=== PATIENT | female | born 1990 | race Caucasian/White ===

== ENCOUNTER 2017-06-02 18:16 | Emergency (ER) | payer OTHER ==
--- NOTE | 2017-06-02 19:41 | PD ---
HPI Chief Complaint Leaking of fluid Travel History International Travel<30 Days: No Contact w/Intl Traveler<30Days: No Known Affected Area: No History of Present Illness HPI 27-year-old , IUP at 29.0 care complicated by obesity The patient presents complaining of some leaking of fluid on her thighs this happened a couple of times today after having intercourse. She denies any large gush of fluid. She denies any painful contractions or cramping. She reports good movement. She denies any vaginal bleeding. She has no other complaints or concerns today. Weeks Gestation: 29 Para: 0 : 1 History Past Medical History Narrative Medical Obesity Obstetric History Obstetric History Past Surgical History Surgical History: No Previous Surgery Family History Narrative Family History DM, HTN Social History Alcohol Use: No Tobacco Use: No Substance Abuse: No Review of Systems Except as stated in HPI: all other systems reviewed are Neg Physical Exam Narrative GENERAL: Well-nourished, well-developed patient. SKIN: Warm and dry. HEAD: Normocephalic and atraumatic. EYES: No scleral icterus. No injection or drainage. ENT: No nasal drainage noted. Mucous membranes pink. Airway patent. NECK: Supple, trachea midline. No JVD. CARDIOVASCULAR: Regular rate and rhythm without murmurs, gallops, or rubs. RESPIRATORY: Breath sounds equal bilaterally. No accessory muscle use. BREASTS: Bilateral exam showed no masses , no retractions, no nipple discharge. ABDOMEN/GI: Abdomen soft, non-tender, bowel sounds present, no rebound, no guarding Gravid to [-] weeks size Fundal Height: [-] GENITOURINARY: External Genitalia: intact and normal in appearance. Grossly normal BUS. Physiologic discharge. No evidence of gross R OM. Grossly normal rugate. Amniosure negative. SVE closed/thick/high/posterior FHT's: heart tones in the 130s moderate long-term variability, good accelerations, no decelerations with heart rate tracing is reassuring and appropriate for gestational age EXTREMITIES: No cyanosis or edema. BACK: Nontender without obvious deformity. NEUROLOGICAL: Awake and alert. Motor and sensory grossly within normal limits. Five out of 5 muscle strength in all muscle groups. Normal speech. Musculoskeletal: Grossly normal range of motion, gait, muscle strength Psychiatric: Grossly normal memory and affect MDM Plan Assessment/plan: 1. IUP at 29.0 2. Leaking of fluid: No evidence of PPROM, negative amniosure and no evidence of gross ROM. Small amount of fluid on the patient's leg is likely due to recent intercourse. Strict PPROM precautions 3. No evidence labor: Strict labor precautions 4. Obesity 5. well-being: Reassuring testing with heart rate that is reassuring and appropriate for gestational age. Reactive for gestational age. kick counts daily. 6. Follow up with primary OB in 2-3 days or sooner if needed. Diagnosis Diagnosis: Primary Impression: 29 weeks gestation of Additional Impressions: No leakage of amniotic fluid into vagina False labor before 37 completed weeks of gestation during in third trimester, antepartum Disposition: 01 DISCHARGE HOME Yesenia Kwan MD Jun 02, 2017 19:40
== END 2017-06-02 20:13 | disposition home or self-care (01) ==
LOC: HOBED 18:16
DX: O47.03 False labor before 37 completed weeks of gestation, third trimester (principal); O99.213 Obesity complicating pregnancy, third trimester; E66.9 Obesity, unspecified; Z3A.29 29 weeks gestation of pregnancy
CPT/HCPCS: 84112; 99284

== ENCOUNTER 2017-07-19 09:13 | Emergency (ER) | payer OTHER ==
--- NOTE | 2017-07-19 10:21 | PD ---
HPI Chief Complaint Decreased movement Date Seen: Jul 19, 2017 Time Seen: 10:18 Travel History International Travel<30 Days: No Contact w/Intl Traveler<30Days: No Known Affected Area: No History of Present Illness HPI 27-year-old primigravida at 35+ weeks gestation who reports managed movement today. She has not had anything to eat or drink today. She denies contractions, bleeding or leakage of fluid. History Past Medical History Medical History: Denies Significant Hx Obstetric History Obstetric History Current has been uncomplicated with Dr. Luis Past Surgical History Surgical History: No Previous Surgery Family History Family History: Negative Social History Alcohol Use: No Tobacco Use: No Substance Abuse: No Review of Systems Except as stated in HPI: all other systems reviewed are Neg Physical Exam Narrative GENERAL: Well-nourished, well-developed patient. SKIN: Warm and dry. HEAD: Normocephalic and atraumatic. EYES: No scleral icterus. No injection or drainage. ENT: No nasal drainage noted. Mucous membranes pink. Airway patent. NECK: Supple, trachea midline. No JVD. ABDOMEN/GI: Abdomen soft, non-tender, bowel sounds present, no rebound, no guarding Gravid to [-] weeks size Fundal Height: [35-] GENITOURINARY: External Genitalia: intact and normal in appearance BUS glands: [-] Cervix: [-] Dilatation: [-] Effacement: [-] Station: [-] Presentation: [-] Membranes: [intact] Uterine Contractions: [-] FHT's: Category: [-] Baseline: [-] Reactive: [-yes] Variability: [-] Decels: [-] EXTREMITIES: No cyanosis or edema. BACK: Nontender without obvious deformity. No CVA tenderness. NEUROLOGICAL: Awake and alert. Motor and sensory grossly within normal limits. Five out of 5 muscle strength in all muscle groups. Normal speech. Data Data Vital Signs Reviewed: Yes MDM Medical Record Reviewed: Yes Narrative Course / MDM Assessment: Decreased movement with reactive NST today Plan: Follow-up as scheduled with Dr. Luis. movement counts were reviewed with the patient. Diagnosis Diagnosis: Primary Impression: 35 weeks gestation of Additional Impression: Decreased movement Disposition: 01 DISCHARGE HOME Condition: Good Jensen Marcos MD Jul 19, 2017 10:21
== END 2017-07-19 10:50 | disposition home or self-care (01) ==
LOC: HOBED 09:13
DX: O36.8130 Decreased fetal movements, third trimester, not applicable or unspecified (principal); Z3A.35 35 weeks gestation of pregnancy
CPT/HCPCS: 59025

== ENCOUNTER 2017-08-11 13:07 | Emergency (ER) | payer OTHER ==
--- NOTE | 2017-08-11 13:55 | PD ---
HPI Chief Complaint Back pain Date Seen: August 11, 2017 Time Seen: 13:52 Travel History International Travel<30 Days: No Contact w/Intl Traveler<30Days: No Known Affected Area: No History of Present Illness HPI 27-year-old who is at 39 weeks comes in complaining of right-sided back pain for the past 3 days. Patient states that it is fairly constant but worsens when she stands or exercises and decreases when she is lying down or sitting. Patient has had movement and denies vaginal bleeding discharge or ruptured membranes. Patient denies uterine contractions and states her last exam was approximately a week ago and cervix was closed at that time denies any antepartum complications. Weeks Gestation: 39 Para: 0 : 1 History Past Medical History Medical History: Denies Significant Hx Past Surgical History Surgical History: No Previous Surgery Family History Family History: Negative Social History Alcohol Use: No Tobacco Use: No Substance Abuse: No Review of Systems Except as stated in HPI: all other systems reviewed are Neg Physical Exam Narrative GENERAL: Well-nourished, well-developed patient. SKIN: Warm and dry. HEAD: Normocephalic and atraumatic. EYES: No scleral icterus. No injection or drainage. ENT: No nasal drainage noted. Mucous membranes pink. Airway patent. NECK: Supple, trachea midline. No JVD. CARDIOVASCULAR: Regular rate and rhythm without murmurs, gallops, or rubs. RESPIRATORY: Breath sounds equal bilaterally. No accessory muscle use. ABDOMEN/GI: Abdomen soft, non-tender, bowel sounds present, no rebound, no guarding. No CVA tenderness Gravid to [-39] weeks size Fundal Height: [-] GENITOURINARY: External Genitalia: intact and normal in appearance BUS glands: [-Normal] Cervix: [Posterior-] Dilatation: [Closed-] Effacement: [50-] Station: [-High] Presentation: [-Vertex] Membranes: [intact or ruptured] intact Uterine Contractions: [-] Irregular FHT's: Category: [-] 1 Baseline: [-] 140 Reactive: [-] Moderate Variability: [-] Moderate Decels: [-] Absent EXTREMITIES: No cyanosis or edema. BACK: Nontender without obvious deformity. No CVA tenderness. NEUROLOGICAL: Awake and alert. Motor and sensory grossly within normal limits. Five out of 5 muscle strength in all muscle groups. Normal speech. Data Data Vital Signs Reviewed: Yes Labs Urine dip was negative for all elements MDM Medical Record Reviewed: Yes Plan 27-year-old who is at 39 weeks gestation with most likely discomforts of . Urine dip is negative and patient exhibits no signs or symptoms of pyelonephritis. Patient is not in labor with a reassuring heart rate tracing Follow up with OB provider next week as scheduled Diagnosis Diagnosis: Primary Impression: 39 weeks gestation of Additional Impression: Back pain affecting in third trimester Disposition: 01 DISCHARGE HOME Lilia Keith MD August 11, 2017 13:55
[2017-08-11 14:23] LABS: BACTERIA, URINE RARE /hpf; BILIRUBIN, URINE NEG (NEG); BLOOD, URINE NEG (NEG); GLUCOSE,URINE NEG (NEG); KETONE, URINE NEG (NEG); MUCUS URINE MANY /lpf (OCC); NITRITE,URINE NEG (NEG); PH, URINE 6.5 (5.0-8.5); SQUAMOUS EPITHELIAL CELL URINE 13 /hpf (0-5); URINE COLOR YELLOW (YELLW/STRAW); URINE LEUKOCYTE ESTERASE SMALL (NEG)
== END 2017-08-11 16:16 | disposition home or self-care (01) ==
LOC: HOBED 13:07
DX: O26.893 Other specified pregnancy related conditions, third trimester (principal); M54.9 Dorsalgia, unspecified; Z3A.39 39 weeks gestation of pregnancy
CPT/HCPCS: 76816; 76819; 81001; 99284

== ENCOUNTER 2017-08-15 05:04 | Emergency (ER) | payer OTHER ==
--- NOTE | 2017-08-15 06:33 | PD ---
HPI Chief Complaint Contractions Date Seen: August 15, 2017 Time Seen: 06:25 Travel History International Travel<30 Days: No Contact w/Intl Traveler<30Days: No Known Affected Area: No History of Present Illness HPI Patient is a 27-year-old black female at [address] Carranza who presents complaining of contraction pain, no leakage, no bleeding, baby is active. heart rate tracing is reactive and she is having irregular contractions at this time Weeks Gestation: 39 Para: 0 : 1 Last Menstrual Period: August 15, 2017 History Social History Alcohol Use: No Tobacco Use: No Substance Abuse: No Allergies-Medications (Allergen,Severity, Reaction): Coded Allergies: No Known Allergies (Unverified , 08/11/17) Review of Systems General / Constitutional: No: Fever, Weight Gain, Chills, Other Eyes: No: Diploplia, Blurred Vision, Visual changes, Pain, Photophobia HENT: No: Headaches, Vertigo, Lightheadedness Cardiovascular: No: Irregular Rhythm, Chest Pain or Discomfort, Palpitations, Tachycardia, Syncope, Varicosities, Edema, Cyanosis Respiratory: No: Cough, Short of Breath, Other Gastrointestinal: Abdominal Pain, No: Nausea, Vomiting, Diarrhea Genitourinary: No: Decreased Urinary Output, Oliguria Musculoskeletal: No: Limited ROM, Weakness, Cramping, Edema, Pain Skin: No Rash, No Itching, No Dryness, No Lumps, No Change in Pigmentation, No Change in Nails, No Alopecia, No Lesions Neurologic: No: Weakness, Dizziness, Syncope, Focal Abnormalities, Coordination Problem, Headache, Slurred Speech, Seizures Psychiatric: No: Depression, Suicidal Ideations, Homicidal Ideation Endocrine: No: Heat Intolerance, Cold Intolerance, Polydipsia, Polyuria, Other Physical Exam Narrative GENERAL: Well-nourished, well-developed patient. SKIN: Warm and dry. HEAD: Normocephalic and atraumatic. EYES: No scleral icterus. No injection or drainage. ENT: No nasal drainage noted. Mucous membranes pink. Airway patent. NECK: Supple, trachea midline. No JVD. CARDIOVASCULAR: Regular rate and rhythm without murmurs, gallops, or rubs. RESPIRATORY: Breath sounds equal bilaterally. No accessory muscle use. BREASTS: Bilateral exam showed no masses , no retractions, no nipple discharge. ABDOMEN/GI: Abdomen soft, non-tender, bowel sounds present, no rebound, no guarding Gravid to [-39] weeks size Fundal Height: [-39] GENITOURINARY: External Genitalia: intact and normal in appearance BUS glands: [-] Cervix: [post-] Dilatation: [1-2-] Effacement: [-50] Station: [-3] Presentation: [vtx-] Membranes: [intact ] Uterine Contractions: [irreg-] FHT's: Category: [1-] Baseline: [133-] Reactive: [R-] Variability: [mod-] Decels: [-none] EXTREMITIES: No cyanosis or edema. BACK: Nontender without obvious deformity. No CVA tenderness. NEUROLOGICAL: Awake and alert. Motor and sensory grossly within normal limits. Five out of 5 muscle strength in all muscle groups. Normal speech. MDM Interpretation(s) Patient is 27-year-old white female 39 weeks with contraction pain. Contractions are irregular at this time, heart rate tracing is reactive. Cervix is 1-2/50/-3 which is the same cervix over the last few checks in the office Plan Plan to discharge home to bedrest, return for increasing pain, bleeding, or leakage of fluid. Otherwise follow-up with her OB provider Diagnosis Diagnosis: Primary Impression: [place] Hick's contraction Additional Impression: 39 weeks gestation of Disposition: 01 DISCHARGE HOME Condition: Stable Antoni Beverly II, MD August 15, 2017 06:33
== END 2017-08-15 06:35 | disposition home or self-care (01) ==
LOC: HOBED 05:04
DX: O47.1 False labor at or after 37 completed weeks of gestation (principal); Z3A.39 39 weeks gestation of pregnancy
CPT/HCPCS: 59025

== ENCOUNTER 2017-08-17 13:47 | Inpatient (IN) | payer OTHER ==
[~2017-08-17] VITALS: Ht 154.9 cm; Wt 89.0 kg
[2017-08-17] VITALS (8 sets, daily range): BP systolic 110–114; BP diastolic 70–72; PULSE 88–101; RESP 15; TEMP 97.8–98.4
--- NOTE | 2017-08-17 15:06 | PD ---
HPI Chief Complaint Contractions Date Seen: August 17, 2017 Time Seen: 15:03 Travel History International Travel<30 Days: No Contact w/Intl Traveler<30Days: No Known Affected Area: No History of Present Illness HPI 27-year-old who is at 39 weeks 6 days comes in complaining of contractions since midnight last night accompanied by some watery discharge. Last cervical exam was and it was 2 cm. Her group B strep is negative. Patient states the contractions are getting more frequent and consistent every 5-10 minutes apart with good movement. Denies antepartum complications Weeks Gestation: 39 Para: 0 : 1 History Past Medical History Medical History: Denies Significant Hx Past Surgical History Surgical History: No Previous Surgery Family History Family History: Negative Social History Alcohol Use: No Tobacco Use: No Substance Abuse: No Allergies-Medications (Allergen,Severity, Reaction): Coded Allergies: No Known Allergies (Unverified , 08/11/17) Review of Systems Except as stated in HPI: all other systems reviewed are Neg Physical Exam Narrative GENERAL: Well-nourished, well-developed patient. SKIN: Warm and dry. HEAD: Normocephalic and atraumatic. EYES: No scleral icterus. No injection or drainage. ENT: No nasal drainage noted. Mucous membranes pink. Airway patent. NECK: Supple, trachea midline. No JVD. CARDIOVASCULAR: Regular rate and rhythm without murmurs, gallops, or rubs. RESPIRATORY: Breath sounds equal bilaterally. No accessory muscle use. ABDOMEN/GI: Abdomen soft, non-tender, bowel sounds present, no rebound, no guarding Gravid to [-37] weeks size Fundal Height: [-] GENITOURINARY: External Genitalia: intact and normal in appearance BUS glands: [-] Normal Cervix: [-] Midposition Dilatation: [-] 4 Effacement: [-] 80 Station: [-] -2 Presentation: [-] Vertex Membranes: [intact or ruptured] intact, bulging membranes Uterine Contractions: [-] Every 5 minutes FHT's: Category: [-] 1 Baseline: [-] 140 Reactive: [-] Moderate Variability: [-] Moderate Decels: [-] Absent EXTREMITIES: No cyanosis or edema. BACK: Nontender without obvious deformity. No CVA tenderness. NEUROLOGICAL: Awake and alert. Motor and sensory grossly within normal limits. Five out of 5 muscle strength in all muscle groups. Normal speech. Data Data Vital Signs Reviewed: Yes Group B Strep: Negative MDM Medical Record Reviewed: Yes Plan 27-year-old who is at 39 weeks 6 days with negative group B strep here with early labor Patient will be admitted to labor and delivery Dr. Patterson was notified Diagnosis Diagnosis: Primary Impression: 39 weeks gestation of Additional Impression: Irregular uterine contractions Disposition: 01 DISCHARGE HOME Lilia Keith MD August 17, 2017 15:06
[2017-08-17] MEDS ORDERED: LACTATED RINGER'S 1000 ML INJ 1,000 ML IV PRN (15:07)
[2017-08-17] MEDS ORDERED: ONDANSETRON HCL 4 MG/2 ML VIAL IV PUSH PRN (15:15)
[2017-08-17] MEDS ORDERED: OXYTOCIN 30 UNITS-500ML PREMIX 500 ML IV ONE (15:15)
[2017-08-17] MEDS ORDERED: LIDOCAINE HCL 1% 50 ML VIAL I-DERMAL PRN (15:15)
[2017-08-17] MEDS ORDERED: CITRIC ACID-SODIUM CITRATE LIQ 30 ML UDC PO SCH (15:15)
[2017-08-17] MEDS ORDERED: MINERAL OIL 10 ML VIAL TOPICAL PRN (15:15)
[2017-08-17] MEDS ORDERED: SODIUM CHLORID 0.9% 500 ML INJ 500 ML IV PRN (15:15)
[2017-08-17] MEDS ORDERED: LIDOCAINE HCL 1% 50 ML VIAL INFIL PRN (15:15)
[2017-08-17] MEDS ORDERED: SODIUM CHLOR 0.9% 1000 ML INJ 1,000 ML IV PRN (15:27)
[2017-08-17] MEDS: LACTATED RINGER'S 1000 ML INJ 1,000 ML IV SCH ×2 (16:00→23:19)
[2017-08-17 16:50] LABS: AUTOMATED NEUTROPHIL # 9.6 TH/MM3 (1.8-7.7); BASOPHIL % 0.2 % (0.0-2.0); EOSINOPHIL % 0.2 % (0.0-4.0); HEMATOCRIT 31.6 % (35.0-46.0); HEMOGLOBIN 10.5 GM/DL (11.6-15.3); LYMPH % 17.5 % (9.0-44.0); LYMPHOCYTE # 2.2 TH/MM3 (1.0-4.8); MEAN CELL VOLUME 89.7 FL (80.0-100.0); MEAN CORPUSCULAR HEMOGLOBIN 29.7 PG (27.0-34.0); MEAN CORPUSCULAR HGB CONC 33.1 % (32.0-36.0); MEAN PLATELET VOLUME 9.1 FL (7.0-11.0); MONO % 6.1 % (0.0-8.0); MONOCYTE # 0.8 TH/MM3 (0-0.9); PLATELET COUNT 225 TH/MM3 (150-450); RED BLOOD COUNT 3.52 MIL/MM3 (4.00-5.30); RED CELL DISTRIBUTION WIDTH 14.2 % (11.6-17.2); WHITE BLOOD COUNT 12.6 TH/MM3 (4.0-11.0)
--- NOTE | 2017-08-17 18:26 | HHI.PR ---
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
[2017-08-17] MEDS ORDERED: PREN29TA PO (18:50)
[2017-08-17] MEDS ORDERED: OXYTOCIN 30 UNITS-500ML PREMIX 500 ML IV PRN (21:30)
[2017-08-18] VITALS (153 sets, daily range): BP systolic 87–132; BP diastolic 40–94; PULSE 64–111; RESP 15–20; TEMP 97.6–98.7; O2SAT 96–100
[2017-08-18] MEDS ORDERED: fentaNYL 2MCG-BUPIV 0.125% INJ 100 ML ONE (00:29)
[2017-08-18] MEDS ORDERED: LIDOCAINE HCL 1% PF 30 ML VIAL ONE ×2 (00:31→06:13)
[2017-08-18] MEDS ORDERED: LIDOCAINE 2%/EPINEPHrine PF 1:200,000 20ML SDV ONE (00:34)
[2017-08-18] MEDS ORDERED: NO SYSTEM NARCOTICS PRN (01:15)
[2017-08-18] MEDS ORDERED: DO NOT ADMINISTER ANTICOAGULANTS PRN (01:15)
[2017-08-18] MEDS ORDERED: ePHEDrine/NS 25 MG/5 ML SYRINGE IV PUSH PRN (01:15)
[2017-08-18] MEDS: fentaNYL 2MCG-BUPIV 0.125% 100 ML EPIDURAL PRN ×2 (01:40→08:27)
--- NOTE | 2017-08-18 04:01 | PD.LABORPN ---
Subjective Subjective feeling comfortable, denies LOF or VB, feeling contractions but unsure how far apart Objective Vital Signs Vital Signs Date Time Temp Pulse Resp B/P (MAP) Pulse Ox O2 Delivery O2 Flow Rate FiO2 08/18/17 03:25 78 08/18/17 03:20 83 08/18/17 03:15 80 94/51 (65) 08/18/17 03:15 111 08/18/17 03:10 91 08/18/17 03:05 77 99 08/18/17 03:00 92 08/18/17 03:00 95 99/51 (67) 97 08/18/17 02:55 81 98 08/18/17 02:50 80 98 08/18/17 02:45 88 08/18/17 02:45 81 99 08/18/17 02:45 92/48 (63) 08/18/17 02:40 88 08/18/17 02:40 97 08/18/17 02:35 103 08/18/17 02:35 98 08/18/17 02:30 102 94/50 (65) 08/18/17 02:30 97 08/18/17 02:30 99 08/18/17 02:25 83 99 08/18/17 02:20 101 97 08/18/17 02:15 76 99/54 (69) 99 08/18/17 02:15 90 08/18/17 02:10 94 99 08/18/17 02:05 84 97 08/18/17 02:01 76 08/18/17 02:00 90 96 08/18/17 01:55 84 98 08/18/17 01:50 82 97 08/18/17 01:46 75 97/47 (64) 08/18/17 01:45 73 99 08/18/17 01:40 78 99 08/18/17 01:40 9 08/18/17 01:35 76 99 08/18/17 01:30 96 08/18/17 01:30 98 99/53 (68) 97 08/18/17 01:25 91 97 08/18/17 01:21 73 99/55 (70) 08/18/17 01:20 74 98 08/18/17 01:16 82 104/58 (73) 08/18/17 01:15 83 99 08/18/17 01:10 86 08/18/17 01:10 112/67 (82) 99 08/18/17 01:05 108/65 (79) 97 08/18/17 01:05 86 08/18/17 01:00 94 102/58 (73) 97 08/18/17 00:56 96 115/70 (85) 08/18/17 00:55 98 98 08/18/17 00:50 95 120/73 (89) 99 08/18/17 00:46 88 115/76 (89) 08/18/17 00:45 89 98 08/18/17 00:41 94 124/75 (91) 08/18/17 00:40 96 99 08/18/17 00:39 99 129/76 (93) 08/17/17 23:00 98.4 15 08/17/17 22:41 95 110/72 (85) Objective Pelvic Exam: Cervix: [mid] Dilatation: [6] Effacement: [50] Station: [-2] Presentation: [vtx] Membranes: [AROM'd clear this check] Uterine Contractions: [difficult to cook pickled meat on monitor] FHT's: Category: [I] Baseline: [130s] Reactive: [y] Variability: [y] Decels: [occasional variables] Weeks Gestation: 39 Pt started active labor?: Yes Medical induction of labor?: No Artificial rupture of membrane: Yes Artificial ROM date: August 18, 2017 Artifical ROM time: 03:46 Assessment/Plan Problem List: (1) Labor and delivery indication for care or intervention ICD Codes: O75.9 - Complication of labor and delivery, unspecified Assessment and Plan slow progress in labor comfortable now w epidural in place AROM'd this check, clear continue active mgmt Hillary Patterson MD August 18, 2017 04:01
[2017-08-18] MEDS ORDERED: OXYTOCIN 10 UNIT/ML AMP ONE (06:12)
--- NOTE | 2017-08-18 07:19 | HHI.PR ---
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 O: VS: Exam: 5-6 cm/50%/-2 FHTs: 150s, moderate variability, accelerations present, variable decelerations with each contraction down to the 100s, does have an occasional late deceleration to the 120s-130s TOCO: Contractions spaced out every 7 minutes A/P 19-year-old G1 at 40 weeks and 0 days here today for spontaneous labor 1. IUP: Category 2 tracing but overall reassuring -Cephalic by exam, EFW 7/2-8 pounds, GBS negative. - EWF on 08/11 = 3309g (43%), unsure why growth was done by OB diagnostics -Female fetus 2. Labor: Status post AROM at 3:45 AM, clear fluid, IUPC in and working, begin amnioinfusion now, start Pitocin following maternal resuscitation, discussed with patient indications for if cannot proceed with augmentation secondary to intolerance. -Comfortable status post epidural. Mark Almaguer MD August 18, 2017 07:19
[2017-08-18] MEDS ORDERED: OXYTOCIN 30 UNITS-500ML PREMIX 500 ML IV PRN ×2 (07:30→17:30)
--- NOTE | 2017-08-18 08:29 | PD.LABORPN ---
Subjective Subjective comfortable with epidural Objective Vital Signs Vital Signs Date Time Temp Pulse Resp B/P (MAP) Pulse Ox O2 Delivery O2 Flow Rate FiO2 08/18/17 08:27 17 08/18/17 07:35 92 08/18/17 07:31 95 105/59 (74) 08/18/17 07:30 88 08/18/17 07:25 83 08/18/17 07:20 84 08/18/17 07:16 83 101/56 (71) 08/18/17 07:15 86 08/18/17 07:14 18 08/18/17 07:10 92 08/18/17 07:05 91 08/18/17 07:00 105/57 (73) 08/18/17 07:00 89 08/18/17 06:55 86 97 08/18/17 06:50 90 08/18/17 06:50 97 08/18/17 06:46 87 98/51 (67) 08/18/17 06:45 98 08/18/17 06:45 96 08/18/17 06:40 93 08/18/17 06:40 97 08/18/17 06:30 87 96/53 (67) 97 08/18/17 06:25 88 98 08/18/17 06:20 89 97 08/18/17 06:16 81 95/58 (70) 08/18/17 06:15 89 98 08/18/17 06:10 92 98 08/18/17 06:05 97 98 08/18/17 06:00 101 99/62 (74) 98 08/18/17 05:55 91 98 08/18/17 05:50 87 99 08/18/17 05:46 98/50 (66) 08/18/17 05:45 91 08/18/17 05:45 98 08/18/17 05:40 86 08/18/17 05:40 98 08/18/17 05:35 99 08/18/17 05:35 92 08/18/17 05:31 109 99/54 (69) 08/18/17 05:30 98.7 15 08/18/17 05:30 93 98 08/18/17 05:25 93 98 08/18/17 05:20 85 99 08/18/17 05:15 89 08/18/17 05:15 90 96/60 (72) 98 18 05:10 98 99 5//18 05:05 95 99 18 05:01 81 5/18 05:00 93 99 18 04:55 84 100 518 04:50 84 99 /18 04:46 101 104/58 (73) 5/18 04:45 104 100 /18 04:40 88 98 18 04:35 85 99 18 04:31 85 100/63 (75) 18 04:30 83 99 18 04:25 99 18 04:25 91 08/18/17 04:20 96 08/18/17 04:20 99 08/18/17 04:15 100 18 04:15 94 08/18/17 04:15 103 117/67 (84) 08/18/17 04:10 86 08/18/17 04:10 100 08/18/17 04:05 100 08/18/17 04:05 99 18 04:01 96 108/56 (73) 08/18/17 04:00 107 99 18 03:55 102 98 18 03:50 94 100 18 03:46 109 95/46 (62) 08/18/17 03:45 109 98 18 03:40 80 98 //18 03:35 84 97 /18 03:30 85 18 03:30 98.4 78 15 95/52 (66) 98 18 03:25 98 08/18/18 03:25 78 //18 03:20 83 5//18 03:20 97 5/8/18 03:15 80 94/51 (65) 18 03:15 111 18 03:15 99 18 03:10 98 //18 03:10 91 18 03:05 77 99 //18 03:00 92 /18 03:00 95 99/51 (67) 97 518 02:55 81 98 18 02:50 80 98 5/8/18 02:45 88 08/18/17 02:45 81 99 08/18/17 02:45 92/48 (63) 08/18/17 02:40 88 08/18/17 02:40 97 08/18/17 02:35 103 08/18/17 02:35 98 08/18/17 02:30 102 94/50 (65) 08/18/17 02:30 97 08/18/17 02:30 99 08/18/17 02:25 83 99 08/18/17 02:20 101 97 08/18/17 02:15 76 99/54 (69) 99 08/18/17 02:15 90 08/18/17 02:10 94 99 08/18/17 02:05 84 97 08/18/17 02:01 76 08/18/17 02:00 90 96 08/18/17 01:55 84 98 08/18/17 01:50 82 97 08/18/17 01:46 75 97/47 (64) 08/18/17 01:45 73 99 08/18/17 01:40 78 99 08/18/17 01:40 9 08/18/17 01:35 76 99 08/18/17 01:30 96 08/18/17 01:30 98 99/53 (68) 97 08/18/17 01:25 91 97 08/18/17 01:21 73 99/55 (70) 08/18/17 01:20 74 98 08/18/17 01:16 82 104/58 (73) 08/18/17 01:15 83 99 08/18/17 01:10 86 08/18/17 01:10 112/67 (82) 99 08/18/17 01:05 108/65 (79) 97 08/18/17 01:05 86 08/18/17 01:00 94 102/58 (73) 97 08/18/17 00:56 96 115/70 (85) 08/18/17 00:55 98 98 08/18/17 00:50 95 120/73 (89) 99 08/18/17 00:46 88 115/76 (89) 08/18/17 00:45 89 98 08/18/17 00:41 94 124/75 (91) 08/18/17 00:40 96 99 08/18/17 00:39 99 129/76 (93) Objective 7-80/0 coming down to apply copious amnio infusion strip with decreased BTBV and some variable/late components EFW 7 pelvis clinically adequate Weeks Gestation: 39 Pt started active labor?: Yes Medical induction of labor?: No Artificial rupture of membrane: Yes Artificial ROM date: August 18, 2017 Artifical ROM time: 03:46 Assessment/Plan Problem List: (1) Labor and delivery indication for care or intervention ICD Codes: O75.9 - Complication of labor and delivery, unspecified Assessment and Plan good change in an hour have sit upright hoping can get to complete and push continue amnioinfusion Fabiola Aguirre MD August 18, 2017 08:29
[2017-08-18] MEDS ORDERED: LACTATED RINGER'S 1000 ML INJ 1,000 ML IV ONE ×2 (10:21→12:00)
[2017-08-18] MEDS ORDERED: ceFAZolin 2 GM in NS 100 ML IV SCH (10:45)
[2017-08-18] MEDS ORDERED: ACETAMINOPHEN 1000 MG/100 ML 100 ML IV ONE (10:56)
[2017-08-18] MEDS ORDERED: MORPHINE SULFATE PF 5 MG/10 ML VIAL ONE (10:56)
[2017-08-18] MEDS ORDERED: LACTATED RINGER'S 1000 ML INJ 1,000 ML IV SCH (11:00)
[2017-08-18] MEDS ORDERED: AZITHROMYCIN INJ 500 MG in SODIUM CHLOR 0.9% 250 ML INJ 250 ML IV ONE (11:00)
[2017-08-18] MEDS ORDERED: ceFAZolin 2 GM PREMIX 50 ML IV SCH (11:30)
[2017-08-18] MEDS ORDERED: ONDANSETRON HCL 4 MG/2 ML VIAL IV PUSH ONE (12:00)
[2017-08-18] MEDS ORDERED: OXYTOCIN 10 UNIT/ML AMP IV ONE (12:00)
[2017-08-18] MEDS ORDERED: CITRIC ACID-SODIUM CITRATE LIQ 30 ML UDC PO SCH (12:00)
[2017-08-18] MEDS ORDERED: LIDOCAINE 2%/EPINEPHrine PF 1:200,000 20ML SDV OTHER ONE (12:00)
[2017-08-18] MEDS ORDERED: PHENYLEPH/NS 1000 MCG/10 ML SYR IV ONE (12:00)
[2017-08-18] MEDS ORDERED: DEXAMETHASONE SOD PHOS 4 MG/ML VIAL IV ONE (12:00)
[2017-08-18] MEDS ORDERED: KETOROLAC TROMETHAMINE 30 MG/ML (IVP) VIAL IV PUSH ONE (12:30)
[2017-08-18] MEDS ORDERED: SODIUM CHLORIDE 0.9% FLUSH 10 ML FLUSH IV FLUSH PRN (12:30)
[2017-08-18] MEDS ORDERED: ONDANSETRON HCL 4 MG/2 ML VIAL IV PUSH PRN (12:30)
[2017-08-18] MEDS ORDERED: OXYTOCIN 30 UNITS-500ML PREMIX 500 ML IV ONE (12:30)
[2017-08-18] MEDS ORDERED: oxyCODONE/ACETAMINOPHEN 5 MG/325 MG TAB PO PRN (12:30)
[2017-08-18] MEDS ORDERED: MORPHINE SULFATE 4 MG/ML INJ IV PUSH PRN (12:30)
[2017-08-18] MEDS ORDERED: ZOLPIDEM TARTRATE 5 MG TAB PO PRN (12:30)
[2017-08-18] MEDS ORDERED: SIMETHICONE 80 MG CHEWABLE TAB PO PRN (12:30)
--- NOTE | 2017-08-18 12:31 | HHI.DCPOC ---
Discharge Care Plan Diagnosis: (1) Status post primary low transverse section (2) Arrested labor (3) heart rate non-reassuring affecting management of mother (4) 40 weeks gestation of Your Health Problems Are: delivery Report Symptoms to Your Doctor -Temperature above 100.5 degrees -Redness, of incision or excessive or foul smelling drainage -Unusual pain or calf pain -Increased vaginal bleeding -Painful or difficulty urinating -Feelings of extreme sadness or anxiety after 2 weeks Goals to Promote Your Health * To prevent worsening of your condition and complications * To maintain your health at the optimal level Directions to Meet Your Goals Take your medications as prescribed Follow your dietary instruction Follow activity as directed Ensure plenty of rest for recovery Drink fluids for hydration Keep your appointments as scheduled Take your immunizations and boosters as scheduled If your symptoms worsen call your PCP, if no PCP go to Urgent Care Center or Emergency Room Smoking is Dangerous to Your Health. Avoid second hand smoke Call the 24-hour crisis hotline for domestic abuse at Mark Almaguer MD August 18, 2017 12:31
--- NOTE | 2017-08-18 12:34 | PD.OB.DELI ---
Procedure Note Section Procedure Pre Op Diagnosis: (1) 40 weeks gestation of (2) Arrested labor (3) heart rate non-reassuring affecting management of mother Post Op Diagnosis: (1) heart rate non-reassuring affecting management of mother (2) Arrested labor (3) 40 weeks gestation of (4) Status post primary low transverse section Performed by Mark Almaguer Procedure: Primary Low Transverse Sec Indication for delivery: Nonreassuring heart tracing, Other (Arrest of dilation 7 cm) Previous condition: None Informed consent obtained: For anesthesia, For procedure Confirmed correct: Patient, Procedure, Site, Time-out taken Anesthesia: Epidural Medication prior to procedure: As documented in eMAR, Analgesics, Antibiotics, IV (2 g Ancef preoperatively and 500 mg IV azithromycin) Monitoring during procedure: Blood pressure monitoring, Pulse oximetry Urinary catheter: Inserted using sterile technique Sterile preparation: Duraprep Position: Supine with wedge to left side Operative Features Skin Incision: Pfannenstiel Uterine Incision: Low transverse w/knife / blunt ext Membranes Ruptured: Artificially, Appearance of fluid (Clear) Presentation: Occiput anterior, Vertex Delivery date: August 18, 2017 Delivery time: 11:42 Delivery of infant: Uneventful, Umbilical cord (Three-vessel cord) Infant: Female, Single One Minute : 9 Five Minute : 9 Status of infant: Viable, Nursery present Placenta delivered: Intact, Other (Donated) Medications: Antibiotics, Oxytocin Estimated blood loss: 800 cc Procedure tolerated: Well Maternal Complications: Other (None) Maternal Condition: Stable Baby Complications: Other (None) Condition: Stable Procedure in detail See full dictated note, dictation number: [id number] Mark Almaguer MD August 18, 2017 12:34
--- NOTE | 2017-08-18 13:05 | MP ---
cc: Mark Almaguer MD DATE OF OPERATION: 08/18/2017 PREOPERATIVE DIAGNOSES: 1. Intrauterine at 40 weeks and 0 days. 2. Persistent category 2 tracing, intolerance of labor. 3. Arrest of dilation, 7 cm. POSTOPERATIVE DIAGNOSES: 1. Intrauterine at 40 weeks and 0 days. 2. Persistent category 2 tracing, intolerance of labor. 3. Arrest of dilation 7 cm. 4. Status post delivery of infant. PROCEDURE PERFORMED: Primary low transverse section. SURGEON: Mark Almaguer MD DISH CLOTH INSPECTOR: [facility] labor and delivery OR staff. FINDINGS: 1. Viable female infant at 11:42, Apgars 9 and 9. 2. Normal uterus, fallopian tubes, and ovaries bilaterally. No intraabdominal adhesions. 3. Intact placenta, 3 vessel cord. ANTIBIOTICS: 2 grams IV Ancef and 500 mg IV azithromycin preoperatively. SPECIMENS: Placenta donated per patient request DEEP VEIN THROMBOSIS PROPHYLAXIS: Sequential compression devices throughout the case. ANESTHESIA: Epidural. ESTIMATED BLOOD LOSS: 800 mL URINE OUTPUT: 200 mL, clear via Lee. INTRAVENOUS FLUIDS: 1600 mL lactated Ringer's and Pitocin. COMPLICATIONS: None. COUNTS: Correct x 2. TIMEOUT: Done correct. DISPOSITION: Stable to PACU, then to . INDICATION: This patient is a 27-year-old G1, now P1-0-0-1, who presented in labor. She was artificially ruptured at 3:45 this morning. Her strip had been mostly category 2 throughout her stay with occasional lates but mostly variables with most of her contractions. Multiple efforts of maternal resuscitation were performed, repositioning, IV fluid bolus, oxygen and amnioinfusion without much improvement. She made slow change from her arrival; however, at 6-7 cm, she arrested for up to 4 hours despite inadequate MVU's. We could not safely augment with Pitocin given her category 2 tracing and the patient was counseled for a delivery. Please see notes and consents for further details. DESCRIPTION OF PROCEDURE: The patient was taken to the operating room and positioned in supine position with a left lateral tilt with the arms out. The abdomen was prepped and draped in a sterile fashion. Anesthesia was found to be adequate. A Pfannenstiel incision was made and dissected sharply down to the fascia, which was extended bilaterally with Ornelas scissors. The fascia was dissected off the underlying rectus muscle superiorly and inferiorly with Ornelas scissors. The peritoneal cavity was entered bluntly and retracted laterally. Bladder blade was inserted and a bladder flap was developed with Metzenbaum scissors. A low transverse incision was made inthe lower uterine segment and extended in a cephalad caudad fashion. I inserted my hand into the uterine cavity and the head was elevated to the hysterotomy and with fundal pressure the head was delivered with ease, followed by gentle downward and upward guidance for the anterior and posterior shoulders respectively. The torso and lower extremities followed with ease and the had spontaneous cry. Delayed cord clamping was performed and infant was then handed off to staff. The placenta was delivered intact with cord traction and uterine massage. Pitocin was bolused. The uterus was exteriorized and cleared free of clot and debris. It was closed with 2 layers, first with running locking 0-Vicryl from left to right and then an imbricating layer of 0 Vicryl. There was oozing from the left edge of the hysterotomy, which was close to the ascending uterine artery. A single O'Burnside stitch on the left with 0 Vicryl was performed and hemostasis was appreciated. The uterus was returned to the abdomen, which was irrigated. The lower uterine segment was found to be hemostatic. The fascia was closed from left to right with unlocked running 0-Vicryl. Then the subcutaneous space was closed with running 2-0 Monocryl. A subcuticular suture of 3-0 Monocryl was used to close the skin and the pressure dressing was applied. The patient tolerated the procedure well. MD YANN Waddell/JENNIFER , 12:41 PM , 01:03 PM PREMA
[2017-08-18] MEDS ORDERED: EPIDURAL-DO NOT ADMINISTER ANTICOAGULANTS PRN (13:45)
[2017-08-18] MEDS ORDERED: EPIDURAL-DIPHENHYDRAMINE HCL 50 MG CAP PO PRN (13:45)
[2017-08-18] MEDS ORDERED: EPIDURAL-DIPHENHYDRAMINE HCL 50 MG/ML VIAL IV PUSH PRN (13:45)
[2017-08-18] MEDS ORDERED: EPIDURAL-NALOXONE HCL 0.4 MG/ML AMP IV PUSH PRN (13:45)
[2017-08-18] MEDS ORDERED: EPIDURAL-NO SYSTEMIC NARCOTICS PRN (13:45)
[2017-08-18] MEDS: KETOROLAC TROMETHAMINE 30 MG/ML (IVP) VIAL IV PUSH SCH ×2 (18:14→23:58)
[2017-08-18] MEDS: LACTATED RINGER'S 1000 ML INJ 1,000 ML IV SCH (19:46)
[2017-08-18] MEDS ORDERED: SODIUM CHLORIDE 0.9% FLUSH 10 ML FLUSH IV FLUSH SCH (21:00)
[2017-08-19 01:00] VITALS: BP 93/48; PULSE 80; RESP 18; TEMP 98.3; O2SAT 98
[2017-08-19] MEDS: LACTATED RINGER'S 1000 ML INJ 1,000 ML IV SCH (01:30)
[2017-08-19 04:00] VITALS: BP 88/62; PULSE 80; RESP 18; TEMP 98.4; O2SAT 98
[2017-08-19] MEDS: KETOROLAC TROMETHAMINE 30 MG/ML (IVP) VIAL IV PUSH SCH ×2 (05:55→12:07)
[2017-08-19 05:58] LABS: AUTOMATED NEUTROPHIL # 13.6 TH/MM3 (1.8-7.7); BASOPHIL % 0.1 % (0.0-2.0); EOSINOPHIL % 0.2 % (0.0-4.0); HEMATOCRIT 24.1 % (35.0-46.0); HEMOGLOBIN 8.1 GM/DL (11.6-15.3); LYMPH % 12.3 % (9.0-44.0); LYMPHOCYTE # 2.1 TH/MM3 (1.0-4.8); MEAN CELL VOLUME 90.2 FL (80.0-100.0); MEAN CORPUSCULAR HEMOGLOBIN 30.4 PG (27.0-34.0); MEAN CORPUSCULAR HGB CONC 33.7 % (32.0-36.0); MEAN PLATELET VOLUME 8.9 FL (7.0-11.0); MONO % 6.8 % (0.0-8.0); MONOCYTE # 1.2 TH/MM3 (0-0.9); NEUT % 80.6 % (16.0-70.0); PLATELET COUNT 177 TH/MM3 (150-450); RED BLOOD COUNT 2.67 MIL/MM3 (4.00-5.30); RED CELL DISTRIBUTION WIDTH 14.4 % (11.6-17.2); WHITE BLOOD COUNT 16.9 TH/MM3 (4.0-11.0)
[2017-08-19 07:45] VITALS: BP 100/59; PULSE 75; RESP 18; TEMP 97.9
--- NOTE | 2017-08-19 07:57 | HHI.OB ---
Subjective Post Operative Day: 1 Remarks doing well, trying to Objective Vitals/I&O Vital Signs Date Time Temp Pulse Resp B/P (MAP) Pulse Ox O2 Delivery O2 Flow Rate FiO2 08/19/17 04:00 98.4 08/19/17 04:00 80 18 88/62 (71) 98 08/19/17 01:00 93/48 (63) 08/19/17 01:00 80 18 08/19/17 01:00 98.3 98 08/18/17 20:00 98.0 08/18/17 20:00 64 18 92/53 (66) 97 08/18/17 18:15 93 18 101/62 (75) 08/18/17 13:46 98.2 76 18 95/52 (66) 08/18/17 13:25 97.6 08/18/17 13:20 19 99 08/18/17 13:20 78 94/54 (67) 08/18/17 13:15 79 08/18/17 13:15 84 08/18/17 13:15 92/51 (65) 08/18/17 13:10 18 99 08/18/17 13:00 85 20 98/57 (71) 99 08/18/17 12:45 82 19 94/55 (68) 98 08/18/17 12:30 97.8 97 20 98/54 (69) 99 08/18/17 11:01 98 102/58 (73) 08/18/17 11:00 85 08/18/17 11:00 97 08/18/17 10:55 80 08/18/17 10:50 83 08/18/17 10:46 80 101/59 (73) 08/18/17 10:45 88 08/18/17 10:16 71 98/40 (59) 08/18/17 10:15 79 08/18/17 10:01 85 104/64 (77) 08/18/17 10:00 87 08/18/17 09:50 91 08/18/17 09:45 80 101/63 (76) 08/18/17 09:45 18 08/18/17 09:45 83 08/18/17 09:40 86 08/18/17 09:35 88 08/18/17 09:31 85 102/61 (75) 08/18/17 09:30 84 08/18/17 09:25 93 08/18/17 09:20 87 08/18/17 09:15 88 08/18/17 09:15 18 08/18/17 09:15 89 113/67 (82) 08/18/17 09:10 89 08/18/17 09:05 79 08/18/17 09:01 94 107/64 (78) 08/18/17 09:00 86 08/18/17 09:00 17 08/18/17 08:55 89 08/18/17 08:50 97 08/18/17 08:46 108 08/18/17 08:46 132/94 (107) 08/18/17 08:45 98.2 08/18/17 08:45 89 08/18/17 08:40 82 08/18/17 08:35 87 08/18/17 08:30 84 104/62 (76) 08/18/17 08:30 88 08/18/17 08:27 17 08/18/17 08:20 84 08/18/17 08:16 98 97/59 (72) 08/18/17 08:15 95 08/18/17 08:10 85 08/18/17 08:05 86 08/18/17 08:00 100 08/18/17 08:00 89 87/56 (66) 08/18/17 08:00 18 Result Diagram: 08/19/17 0511 Objective Remarks GENERAL: Well-nourished, well-developed patient. CARDIOVASCULAR: Regular rate and rhythm without murmurs, gallops, or rubs. RESPIRATORY: Breath sounds equal bilaterally. No accessory muscle use. ABDOMEN/GI: Abdomen soft, non-tender, bowel sounds present. Incision: dressing Clean, dry and intact. Fundus: Firm, non-tender at umbilicus. GENITOURINARY: Light to moderate bleeding. EXTREMITIES: No cyanosis or edema, non-tender, without signs of DVT. Medications and IVs Current Medications Medications (Trade) Dose Ordered Sig/Vanessa Route Start Time Stop Time Status Last Admin Cefazolin Sodium 2000 mg/Sodium Chloride 100 ml @ 200 mls/hr TECHNOLOGY AND ENGINEERING TEACHER IV 08/18/17 10:45 08/21/17 10:44 08/18/17 11:01 Lactated Ringer's 1,000 ml @ 100 mls/hr Q10H IV 08/18/17 17:26 08/19/17 13:25 08/19/17 01:30 Oxytocin 500 ml @ 100 mls/hr UNSCH X1 PRN IV 08/18/17 17:30 08/19/17 17:29 (NS Flush) 2 ml BID IV FLUSH 08/18/17 21:00 (NS Flush) 2 ml UNSCH PRN IV FLUSH 08/18/17 12:30 (Mylicon Chew) 80 mg QID PRN PO 08/18/17 12:30 (Motrin) 600 mg Q6H PRN PO 08/18/17 12:30 (Percocet 5-325 Mg) 1 tab Q4H PRN PO 08/18/17 12:30 (Percocet 5-325 Mg) 2 tab Q4H PRN PO 08/18/17 12:30 (Karis-Colace) 2 tab Q12H PRN PO 08/18/17 12:30 (Ambien) 5 mg HS PRN PO 08/18/17 12:30 (M-M-R Ii Inj) 0.5 ml ONCE ONCE SQ 08/19/17 16:00 08/19/17 16:01 (Boostrix Inj) 0.5 ml ONCE ONCE IM 08/19/17 16:00 08/19/17 16:01 (Zofran Inj) 4 mg Q6H PRN IV PUSH 08/18/17 12:30 (Morphine Inj) 5 mg Q4H PRN IV PUSH 08/18/17 12:30 (Toradol Inj) 15 mg Q6H IV PUSH 08/18/17 12:30 08/19/17 12:29 08/19/17 05:55 ([facility]) NO SYSTEMIC NARCOTICS TO BE GIVEN FO... UNSCH PRN .XX 08/18/17 13:45 08/19/17 13:45 (Narcan Inj) 0.4 mg UNSCH PRN IV PUSH 08/18/17 13:45 08/19/17 13:45 (Benadryl Inj) 25 mg Q6H PRN IV PUSH 08/18/17 13:45 08/19/17 13:45 (Benadryl) 50 mg Q6H PRN PO 08/18/17 13:45 08/19/17 13:45 ([facility]) ALL NURSING DEPARTMENTS UNSCH PRN .XX 08/18/17 13:45 08/19/17 13:45 Assessment/Plan Problem List: (1) Labor and delivery indication for care or intervention ICD Codes: O75.9 - Complication of labor and delivery, unspecified (2) delivery delivered ICD Codes: O82 - Encounter for delivery without indication (3) 40 weeks gestation of ICD Codes: Z3A.40 - 40 weeks gestation of Assessment and Plan POD #1 C/S female doing well routine post op care Discharge Planning 2-3 d PP Attending Attestation pt seen by Sabina Raymundo MD August 19, 2017 07:57
[2017-08-19] MEDS ORDERED: MEASLES, MUMPS, RUBELLA VACCINE 0.5 ML VIAL SQ ONE (16:00)
[2017-08-19] MEDS ORDERED: DIPHTH/TETANUS/ACEL PERTUSSIS (BOOSTER) 0.5 ML VIAL/PFS IM ONE (16:00)
[2017-08-19] MEDS: DOCUSATE SODIUM 50 MG/SENNA 8.6 MG TAB PO PRN (19:54)
[2017-08-19] MEDS: IBUPROFEN 600 MG TAB PO PRN (19:55)
[2017-08-19 20:00] VITALS: BP 97/64; PULSE 90; RESP 18; TEMP 97.8
[2017-08-19] MEDS: oxyCODONE/ACETAMINOPHEN 5 MG/325 MG TAB PO PRN (22:18)
[2017-08-20] MEDS: IBUPROFEN 600 MG TAB PO PRN ×2 (05:39→13:56)
[2017-08-20] MEDS: oxyCODONE/ACETAMINOPHEN 5 MG/325 MG TAB PO PRN ×2 (05:39→13:56)
--- NOTE | 2017-08-20 07:57 | HHI.OB ---
Subjective Post Operative Day: [address] Almaguer. Doing well, min bleeding, pain well controlled, susan po. ready to go home Objective Vitals/I&O Vital Signs Date Time Temp Pulse Resp B/P (MAP) Pulse Ox O2 Delivery O2 Flow Rate FiO2 08/19/17 20:00 97.8 90 18 97/64 (75) Result Diagram: 08/19/17 0511 Objective Remarks GENERAL: Well-nourished, well-developed patient. CARDIOVASCULAR: Regular rate and rhythm without murmurs, gallops, or rubs. RESPIRATORY: Breath sounds equal bilaterally. No accessory muscle use. ABDOMEN/GI: Abdomen soft, non-tender, bowel sounds present. Incision: Clean, dry and intact. Fundus: Firm, non-tender at umbilicus. GENITOURINARY: Light to moderate bleeding. EXTREMITIES: No cyanosis or edema, non-tender, without signs of DVT. Medications and IVs Current Medications Medications (Trade) Dose Ordered Sig/Vanessa Route Start Time Stop Time Status Last Admin Cefazolin Sodium 2000 mg/Sodium Chloride 100 ml @ 200 mls/hr CAD ADMINISTRATOR IV 08/18/17 10:45 08/21/17 10:44 08/18/17 11:01 (NS Flush) 2 ml BID IV FLUSH 08/18/17 21:00 (NS Flush) 2 ml UNSCH PRN IV FLUSH 08/18/17 12:30 (Mylicon Chew) 80 mg QID PRN PO 08/18/17 12:30 (Motrin) 600 mg Q6H PRN PO 08/18/17 12:30 08/20/17 05:39 (Percocet 5-325 Mg) 1 tab Q4H PRN PO 08/18/17 12:30 08/20/17 05:39 (Percocet 5-325 Mg) 2 tab Q4H PRN PO 08/18/17 12:30 (Karis-Colace) 2 tab Q12H PRN PO 08/18/17 12:30 08/19/17 19:54 (Ambien) 5 mg HS PRN PO 08/18/17 12:30 (Zofran Inj) 4 mg Q6H PRN IV PUSH 08/18/17 12:30 (Morphine Inj) 5 mg Q4H PRN IV PUSH 08/18/17 12:30 Assessment/Plan Problem List: (1) Labor and delivery indication for care or intervention ICD Codes: O75.9 - Complication of labor and delivery, unspecified (2) delivery delivered ICD Codes: O82 - Encounter for delivery without indication (3) 40 weeks gestation of ICD Codes: Z3A.40 - 40 weeks gestation of Assessment and Plan POD #2 C/S female doing well routine post op care d/c home today f/u 2 wk Discharge Planning 2-3 d Gracy Bruner MD August 20, 2017 07:57
[2017-08-20 08:10] VITALS: BP 88/52; PULSE 77; RESP 18; TEMP 98.3
[2017-08-20] MEDS ORDERED: OXYC1TAB63 PO (08:27)
[2017-08-20] MEDS ORDERED: IBUP-232 PO (08:27)
[2017-08-20] MEDS: DOCUSATE SODIUM 50 MG/SENNA 8.6 MG TAB PO PRN (14:10)
== END 2017-08-20 14:32 | disposition home or self-care (01) | DRG 766 ==
LOC: HOBED 13:47 → H2EA 15:17 → H1EA 08-18 12:10
PROVIDERS: ADMIT Obstetrics & Gynecology; ATTEND Obstetrics & Gynecology
PROC: 10D00Z1 Extraction of Products of Conception, Low, Open Approach (ICD-10-PCS; principal; 2017-08-18)
PROC: 10907ZC Drainage of Amniotic Fluid, Therapeutic from Products of Conception, Via Natural or Artificial Opening (ICD-10-PCS; 2017-08-18)
PROC: 3E0R3BZ Introduction of Anesthetic Agent into Spinal Canal, Percutaneous Approach (ICD-10-PCS; 2017-08-18)
PROC: 00HU33Z Insertion of Infusion Device into Spinal Canal, Percutaneous Approach (ICD-10-PCS; 2017-08-18)
DX: O62.2 Other uterine inertia (principal); O77.9 Labor and delivery complicated by fetal stress, unspecified; Z37.0 Single live birth; Z3A.40 40 weeks gestation of pregnancy; O76 Abnormality in fetal heart rate and rhythm complicating labor and delivery
CPT/HCPCS: 59025; 80307; 84112; 85025; 86900; 86901; 90707; 90715; G0481; J0131; J0456; J0690; J1100; J1885; J2274; J2370; J2405; J2590; J7030; J7050; J7120